=== PATIENT | male | born 1965 | race African-American/Black ===

== ENCOUNTER 2017-10-28 10:07 | Inpatient (IN) | payer BC ==
[~2017-10-28] VITALS: Ht 180.3 cm; Wt 93.0 kg
[~2017-10-28 10:07] MED LIST: LISI10TA5 PO; TENO300T2 PO
[2017-10-28] MEDS ORDERED: GABAPENTIN 300 MG CAPSULE ONE (10:29)
[2017-10-28] MEDS ORDERED: CELECOXIB 200 MG CAPSULE ONE (10:29)
[2017-10-28] MEDS ORDERED: CEFAZOLIN 2 GM IVPB PREMIX 50 ML IV ONE (10:30)
[2017-10-28] MEDS ORDERED: ACETAMINOPHEN 500 MG TABLET PO ONE (10:30)
[2017-10-28] MEDS ORDERED: CELECOXIB 200 MG CAPSULE PO ONE (10:30)
[2017-10-28] MEDS ORDERED: oxyCODONE HCL 10 MG TAB.ER.12H PO ONE ×2 (10:30→10:31)
[2017-10-28] MEDS ORDERED: GABAPENTIN 300 MG CAPSULE PO ONE (10:30)
[2017-10-28] MEDS ORDERED: TRANEXAMIC ACID 650 MG TABLET PO ONE (10:30)
[2017-10-28] MEDS ORDERED: NACL 0.9% 1,000 ML IV ONE (10:30)
[2017-10-28] MEDS ORDERED: ACETAMINOPHEN 500 MG TABLET ONE (10:31)
[2017-10-28] MEDS ORDERED: TRANEXAMIC ACID 650 MG TABLET ONE (10:32)
[2017-10-28] MEDS ORDERED: LISI-217 PO (11:18)
[2017-10-28] MEDS ORDERED: TENO25TA PO (11:18)
[2017-10-28] MEDS ORDERED: POLYMYXIN 500,000/BACIT.10,000 UNITS in NS IRR 1 L IR ONE (11:19)
[2017-10-28] MEDS ORDERED: PROPOFOL 200MG/ 20ML VIAL (DIPRIVAN) IV ONE (12:00)
[2017-10-28] MEDS ORDERED: MIDAZOLAM HCL 5 MG/5 ML VIAL IVP ONE (12:00)
[2017-10-28] MEDS ORDERED: VANCOMYCIN HCL 1000 MG/VIAL IV ONE (12:00)
[2017-10-28] MEDS ORDERED: EPINEPHrine 1 MG/ML AMP IV ONE (12:00)
[2017-10-28] MEDS ORDERED: KETOROLAC TROMETHAMINE 30 MG VIAL IVP ONE (12:00)
[2017-10-28] MEDS ORDERED: TRANEXAMIC ACID 1,000 MG/10 ML VIAL IV ONE (12:00)
[2017-10-28] MEDS ORDERED: MORPHINE SULFATE 10MG/10ML PF AMP EP ONE (12:00)
[2017-10-28] MEDS ORDERED: BUPIVACAINE /PF 0.75% 10 ML VIAL INJ ONE (12:00)
[2017-10-28] MEDS ORDERED: LR 1,000 ML IV.SOLN IV ONE (12:00)
[2017-10-28] MEDS ORDERED: ROPIVACAINE 0.2% 550 ML INJ SCH ×2 (12:57→14:07)
[2017-10-28] MEDS ORDERED: NALBUPHINE HCL 10 MG/ML AMP IVP PRN (13:00)
[2017-10-28] MEDS ORDERED: fentaNYL CITRATE/PF 100 MCG/2 ML AMP IVP PRN ×2 (13:00)
[2017-10-28] MEDS ORDERED: NALOXONE HCL 0.4 MG/ML AMP (NARCAN) IVP PRN ×2 (13:00)
[2017-10-28] MEDS ORDERED: MORPHINE SULFATE 10MG/10ML PF AMP SP SCH (13:00)
[2017-10-28] MEDS ORDERED: KETOROLAC TROMETHAMINE 30 MG VIAL IVP PRN (13:00)
[2017-10-28] MEDS ORDERED: OXYCODONE/ACETAMINOPHEN *10*mg/325 mg TABLET PO PRN (13:00)
[2017-10-28] MEDS ORDERED: ONDANSETRON HCL 4 MG/2 ML VIAL IVP PRN ×2 (13:00→14:15)
[2017-10-28] MEDS ORDERED: DIPHENHYDRAMINE INJ 50 MG/ML VIAL IVP PRN (13:00)
[2017-10-28] MEDS ORDERED: KETOROLAC TROMETHAMINE 60 MG/2 ML VIAL IM PRN (13:00)
[2017-10-28] MEDS ORDERED: KETOROLAC TROMETHAMINE 15 MG VIAL IVP PRN ×2 (14:15)
[2017-10-28] MEDS ORDERED: PROMETHAZINE HCL 25 MG/ML AMP IVP PRN (14:15)
[2017-10-28] MEDS ORDERED: DIPHENHYDRAMINE HCL 25 MG CAPSULE PO PRN (14:15)
[2017-10-28] MEDS ORDERED: SENNOSIDES 8.6 MG TABLET PO PRN (14:15)
[2017-10-28 15:22] VITALS: BP_SYST 124
[2017-10-28] MEDS ORDERED: RIVAROXABAN 10 MG TABLET PO ONE (16:30)
[2017-10-28] MEDS: ACETAMINOPHEN 500 MG TABLET PO SCH ×2 (17:24→21:30)
[2017-10-28] MEDS: D5LR 1,000 ML IV SCH (17:24)
[2017-10-28] MEDS: CEFAZOLIN 1 GM IVPB PREMIX 50 ML IV SCH (17:24)
[2017-10-28 18:40] VITALS: BP_SYST 124
[2017-10-28 20:00] VITALS: BP_SYST 121
[2017-10-28] MEDS: CELECOXIB 200 MG CAPSULE PO SCH (21:30)
[2017-10-28] MEDS: GABAPENTIN 300 MG CAPSULE PO SCH (21:30)
[2017-10-29] MEDS: oxyCODONE HCL 5 MG TABLET PO PRN ×4 (00:20→22:24)
[2017-10-29] MEDS: D5LR 1,000 ML IV SCH ×2 (00:22→20:07)
[2017-10-29] MEDS: CEFAZOLIN 1 GM IVPB PREMIX 50 ML IV SCH ×2 (01:34→09:56)
[2017-10-29 02:05] VITALS: BP_SYST 119
[2017-10-29 06:28] LABS: BASOPHILS % (AUTO) 0.3 % (0.0-2.0); EOSINOPHILS # (AUTO) 0.1 K/uL (0.0-0.4); EOSINOPHILS % (AUTO) 1.9 % (0.0-4.0); HEMATOCRIT 37.2 % (36-54); HEMOGLOBIN 12.9 g/dL (14.0-18.0); LYMPHOCYTES # (AUTO) 1.8 K/uL (1.0-5.5); LYMPHOCYTES % (AUTO) 25.7 % (20.5-51.5); MEAN CORPUSCULAR HEMOGLOBIN 30 pg (27-31); MEAN CORPUSCULAR HGB CONC 35 % (32-36); MEAN CORPUSCULAR VOLUME 87 fL (79.0-98.0); MONOCYTES # (AUTO) 0.7 K/uL (0.0-1.0); MONOCYTES % (AUTO) 10.4 % (1.7-9.3); NEUTROPHILS # (AUTO) 4.3 K/uL (1.8-7.7); NEUTROPHILS % (AUTO) 61.7 % (40.0-70.0); PLATELET COUNT (AUTO) 171 K/uL (130-430); RED CELL DISTRIBUTION WIDTH 13.4 % (9.0-15.0); WHITE BLOOD COUNT (AUTO) 6.9 K/uL (4.8-10.8)
[2017-10-29 06:41] LABS: CALCIUM 8.4 mg/dL (8.4-11.0); CREATININE 1.04 mg/dL (0.55-1.30); POTASSIUM 3.9 mmol/L (3.5-5.1)
[2017-10-29 08:00] VITALS: BP_SYST 127
[2017-10-29] MEDS ORDERED: TENOFOVIR DISOPROXIL FUMARATE 300 MG TABLET(VIREAD) PO SCH (09:00)
[2017-10-29] MEDS: CELECOXIB 200 MG CAPSULE PO SCH ×2 (09:10→20:34)
[2017-10-29] MEDS: LISINOPRIL 10 MG TABLET (PRINIVIL) PO SCH (09:10)
[2017-10-29] MEDS: ACETAMINOPHEN 500 MG TABLET PO SCH ×3 (09:11→20:34)
[2017-10-29] MEDS: MORPHINE 4 MG/ML INJ. SYRINGE IVP PRN ×3 (10:05→23:31)
[2017-10-29] MEDS: RIVAROXABAN 10 MG TABLET PO SCH (10:12)
[2017-10-29] MEDS: TENOFOVIR ALAFENAMIDE FUMARATE 25 MG PO SCH (11:35)
[2017-10-29 12:37] VITALS: BP_SYST 108
[2017-10-29] MEDS ORDERED: ONDANSETRON HCL 4 MG/2 ML VIAL IVP PRN (13:00)
[2017-10-29] MEDS ORDERED: NALBUPHINE HCL 10 MG/ML AMP IVP PRN (13:00)
[2017-10-29] MEDS ORDERED: DIPHENHYDRAMINE INJ 50 MG/ML VIAL IVP PRN (13:00)
[2017-10-29 16:13] VITALS: BP_SYST 110
[2017-10-29] MEDS ORDERED: CALCIUM CARBONATE 500 MG/ TAB.CHEW PO PRN (16:15)
[2017-10-29 19:35] VITALS: BP_SYST 127
[2017-10-29] MEDS: GABAPENTIN 300 MG CAPSULE PO SCH (20:34)
[2017-10-29 23:47] VITALS: BP_SYST 108
[2017-10-30] MEDS ORDERED: MORPHINE SULFATE 10 MG/ML VIAL IM ONE ×2 (00:15→12:45)
[2017-10-30] MEDS: D5LR 1,000 ML IV SCH ×3 (00:35→16:07)
[2017-10-30] MEDS: oxyCODONE HCL 5 MG TABLET PO PRN ×3 (06:33→21:21)
[2017-10-30 06:45] LABS: BASOPHILS % (AUTO) 0.1 % (0.0-2.0); EOSINOPHILS # (AUTO) 0.1 K/uL (0.0-0.4); EOSINOPHILS % (AUTO) 1.5 % (0.0-4.0); LYMPHOCYTES # (AUTO) 1.6 K/uL (1.0-5.5); LYMPHOCYTES % (AUTO) 26.5 % (20.5-51.5); MEAN CORPUSCULAR HEMOGLOBIN 30 pg (27-31); MEAN CORPUSCULAR HGB CONC 34 % (32-36); MEAN CORPUSCULAR VOLUME 87 fL (79.0-98.0); MONOCYTES # (AUTO) 0.7 K/uL (0.0-1.0); MONOCYTES % (AUTO) 11.9 % (1.7-9.3); NEUTROPHILS # (AUTO) 3.5 K/uL (1.8-7.7); PLATELET COUNT (AUTO) 175 K/uL (130-430); RED BLOOD CELL COUNT(AUTO) 4.04 MIL/uL (4.2-6.2); RED CELL DISTRIBUTION WIDTH 13.1 % (9.0-15.0); WHITE BLOOD COUNT (AUTO) 5.9 K/uL (4.8-10.8)
[2017-10-30 07:30] LABS: CALCIUM 8.2 mg/dL (8.4-11.0); CREATININE 1.05 mg/dL (0.55-1.30); POTASSIUM 3.8 mmol/L (3.5-5.1)
[2017-10-30] MEDS: MORPHINE 4 MG/ML INJ. SYRINGE IVP PRN (07:45)
[2017-10-30 08:03] VITALS: BP_SYST 138
[2017-10-30] MEDS ORDERED: MORPHINE 4 MG/ML INJ. SYRINGE IVP PRN ×2 (09:00)
[2017-10-30] MEDS ORDERED: ACETAMINOPHEN 325 MG TABLET PO PRN (09:00)
[2017-10-30] MEDS: ACETAMINOPHEN 500 MG TABLET PO SCH ×3 (09:00→20:03)
[2017-10-30] MEDS: fentaNYL CITRATE/PF 100 MCG/2 ML AMP IVP PRN ×2 (09:14→12:23)
[2017-10-30] MEDS ORDERED: fentaNYL CITRATE/PF 100 MCG/2 ML AMP ONE (09:14)
[2017-10-30] MEDS: CELECOXIB 200 MG CAPSULE PO SCH ×2 (09:16→20:03)
[2017-10-30] MEDS: LISINOPRIL 10 MG TABLET (PRINIVIL) PO SCH (09:17)
[2017-10-30] MEDS: RIVAROXABAN 10 MG TABLET PO SCH (09:17)
[2017-10-30] MEDS: TENOFOVIR ALAFENAMIDE FUMARATE 25 MG PO SCH (09:18)
[2017-10-30 09:39] LABS: BILIRUBIN,DIRECT 0.2 mg/dL (0.0-0.3); TOTAL BILIRUBIN 0.8 mg/dL (0.0-1.0)
[2017-10-30] MEDS ORDERED: IOHEXOL 350 mgI/mL, 150 ML INFUS..BTL IV ONE (10:26)
[2017-10-30 12:30] VITALS: BP_SYST 130
[2017-10-30 18:09] VITALS: BP_SYST 128
[2017-10-30 20:00] VITALS: BP_SYST 153
[2017-10-30] MEDS: GABAPENTIN 300 MG CAPSULE PO SCH (20:02)
[2017-10-31 00:27] VITALS: BP_SYST 119
[2017-10-31] MEDS: D5LR 1,000 ML IV SCH ×2 (02:07→10:59)
[2017-10-31] MEDS: oxyCODONE HCL 5 MG TABLET PO PRN ×2 (03:05→12:49)
[2017-10-31 08:10] VITALS: BP_SYST 146
[2017-10-31] MEDS: CELECOXIB 200 MG CAPSULE PO SCH (08:11)
[2017-10-31] MEDS: ACETAMINOPHEN 500 MG TABLET PO SCH (08:12)
[2017-10-31] MEDS: LISINOPRIL 10 MG TABLET (PRINIVIL) PO SCH (08:12)
[2017-10-31] MEDS: TENOFOVIR ALAFENAMIDE FUMARATE 25 MG PO SCH (08:21)
[2017-10-31 09:29] LABS: BASOPHILS % (AUTO) 0.5 % (0.0-2.0); EOSINOPHILS % (AUTO) 0.6 % (0.0-4.0); HEMOGLOBIN 12.1 g/dL (14.0-18.0); LYMPHOCYTES # (AUTO) 1.5 K/uL (1.0-5.5); LYMPHOCYTES % (AUTO) 21.2 % (20.5-51.5); MEAN CORPUSCULAR HEMOGLOBIN 30 pg (27-31); MEAN CORPUSCULAR HGB CONC 35 % (32-36); MEAN CORPUSCULAR VOLUME 87 fL (79.0-98.0); MONOCYTES # (AUTO) 0.6 K/uL (0.0-1.0); MONOCYTES % (AUTO) 8.2 % (1.7-9.3); NEUTROPHILS # (AUTO) 4.8 K/uL (1.8-7.7); NEUTROPHILS % (AUTO) 69.5 % (40.0-70.0); PLATELET COUNT (AUTO) 179 K/uL (130-430); RED BLOOD CELL COUNT(AUTO) 4.03 MIL/uL (4.2-6.2); RED CELL DISTRIBUTION WIDTH 13.1 % (9.0-15.0); WHITE BLOOD COUNT (AUTO) 6.9 K/uL (4.8-10.8)
[2017-10-31 10:12] LABS: CALCIUM 8.4 mg/dL (8.4-11.0); CREATININE 0.92 mg/dL (0.55-1.30); POTASSIUM 4.2 mmol/L (3.5-5.1)
[2017-10-31] MEDS: RIVAROXABAN 10 MG TABLET PO SCH (10:57)
[2017-10-31 12:25] VITALS: BP_SYST 114
[2017-10-31 14:50] VITALS: BP_SYST 120
== END 2017-10-31 15:25 | disposition home health service (06) | DRG 470 ==
LOC: SMU 10:07 → STU 10:34 → SMU 10-29 08:04 → STU 10-30 10:26
PROVIDERS: ADMIT Orthopaedic Surgery; ATTEND Orthopaedic Surgery
PROC: 0SRD0J9 Replacement of Left Knee Joint with Synthetic Substitute, Cemented, Open Approach (ICD-10-PCS; principal; 2017-10-28 12:00)
DX: M17.12 Unilateral primary osteoarthritis, left knee (principal); B18.1 Chronic viral hepatitis B without delta-agent; I10 Essential (primary) hypertension
CPT/HCPCS: 36415; 71275; 80048; 80076; 85025; 87081; 88305; 88311; 93306; 93970; 97039; 97110-GP; 97116-GP; 97530-GP; C1713; C1776; J0171; J0690; J1885; J2250; J2270; J2274; J2704; J2795; J3010; J3370; J3490; J7120; Q9967

== ENCOUNTER 2021-04-03 19:38 | Emergency (ER) | payer BC, OTHER ==
[~2021-04-03] VITALS: Ht 180.3 cm; Wt 99.3 kg
[~2021-04-03 19:38] MED LIST changes: +LISI-217 PO; +LISI10TA29 PO; -LISI10TA5 PO; +TENO25TA PO
[2021-04-03 19:50] VITALS: BP_SYST 146
[2021-04-03] MEDS ORDERED: IBUP-1969 PO (20:45)
[2021-04-03 21:23] VITALS: BP_SYST 146
== END 2021-04-03 21:24 | disposition home or self-care (01) ==
LOC: SED 19:38
DX: S80.02XA Contusion of left knee, initial encounter (principal); I10 Essential (primary) hypertension; Z79.899 Other long term (current) drug therapy; W51.XXXA Accidental striking against or bumped into by another person, initial encounter; Y93.89 Activity, other specified; Y92.89 Other specified places as the place of occurrence of the external cause; Y99.8 Other external cause status
CPT/HCPCS: 73564; 99283

== ENCOUNTER 2021-10-08 04:04 | Emergency (ER) | payer BC, OTHER ==
[~2021-10-08] VITALS: Ht 180.3 cm; Wt 97.5 kg
[~2021-10-08 04:04] MED LIST changes: +IBUP-1969 PO
[2021-10-08 04:08] VITALS: BP_SYST 135
--- NOTE | 2021-10-08 04:08 | NUR ---
55 YR OLD AOX4, AMBULATORY MALE WITH COMPLAINT OF SUDDEN ONSET ALLERGIC REACTION OF UNKNOWN ORIGIN WITH LIP SWELLING FOR 12 HOURS. PT DENIES SOB, OR ITCHING. PT NOTED TO HAVE SIGNIFICANT SWELLING OF HIS UPPER LIP WITH MILD SWELLING ON OUTTER EDGES. PT REPORTS HEALTH HX OF HTN AND HEP B. IV INSERTED MD DUY AT THE BEDSIDE FOR EVALUATION. WILL MONITOR CLOSELY
[2021-10-08] MEDS ORDERED: DEXAMETHASONE SOD PHOSPHATE 10 MG/ML VIAL IVP ONE (04:30)
[2021-10-08] MEDS ORDERED: FAMOTIDINE PF 20 MG/2 ML VIAL IVP ONE (04:30)
[2021-10-08] MEDS ORDERED: DIPHENHYDRAMINE INJ 50 MG/ML VIAL IVP ONE (04:30)
[2021-10-08] MEDS ORDERED: AMLO5TAB4 PO (05:33)
[2021-10-08] MEDS ORDERED: LORA10TA7 PO (05:33)
[2021-10-08] MEDS ORDERED: FAMO40TA71 PO (05:33)
[2021-10-08] MEDS ORDERED: PRED20TA PO (05:33)
[2021-10-08] MEDS ORDERED: HYDR12.585 PO (05:33)
[2021-10-08 06:40] VITALS: BP_SYST 136
--- NOTE | 2021-10-08 06:43 | NUR ---
Patient given written and verbal discharge instructions and verbalizes understanding. ER MD discussed with patient the results and treatment provided. Patient in stable condition. ID arm band removed. IV catheter removed intact and dressing applied, no active bleeding. Rx of AMLODIPINE given. Patient educated on discontinuing lisinopril and to follow up with PMD. Opportunity for questions provided and answered. Medication side effect fact sheet provided. Pt discharged with all belongings in stable condition.
== END 2021-10-08 06:46 | disposition home or self-care (01) ==
LOC: SED 04:04
DX: T50.995A Adverse effect of other drugs, medicaments and biological substances, initial encounter (principal); I10 Essential (primary) hypertension; Z79.899 Other long term (current) drug therapy; Y92.89 Other specified places as the place of occurrence of the external cause
CPT/HCPCS: 96374; 96375; 99284; J1100; J1200; J3490

== ENCOUNTER 2022-02-28 10:51 | Emergency (ER) | payer BC ==
[~2022-02-28] VITALS: Ht 180.3 cm; Wt 98.4 kg
[2022-02-28 10:51] VITALS: BP_SYST 165
[~2022-02-28 10:51] MED LIST changes: +AMLO5TAB4 PO; +FAMO40TA71 PO; +HYDR12.585 PO; +LORA10TA7 PO; +PRED20TA PO
--- NOTE | 2022-02-28 10:55 | NUR ---
BROUGHT BACK TO BED #5 AND TRIAGED. REPORT GIVEN TO HUGO
--- NOTE | 2022-02-28 11:00 | NUR ---
Patient c/c HTN, states he was unable to fill his medication refill. Patient in no acute distress, BP 164/114, MD aware.
[2022-02-28] MEDS ORDERED: cloNIDine HCL 0.2 MG TABLET PO ONE (11:15)
[2022-02-28 11:33] LABS: EOSINOPHILS # (AUTO) 0.1 K/uL (0.0-0.4); HEMATOCRIT 42.5 % (36-54); LYMPHOCYTES # (AUTO) 1.8 K/uL (1.0-5.5); LYMPHOCYTES % (AUTO) 34.2 % (20.5-51.5); MEAN CORPUSCULAR VOLUME 82 fL (79.0-98.0); MONOCYTES # (AUTO) 0.3 K/uL (0.0-1.0); MONOCYTES % (AUTO) 5.1 % (1.7-9.3); NEUTROPHILS % (AUTO) 58.7 % (40.0-70.0); PLATELET COUNT (AUTO) 211 K/uL (130-430); RED BLOOD CELL COUNT(AUTO) 5.16 MIL/uL (4.2-6.2); RED CELL DISTRIBUTION WIDTH 12.9 % (9.0-15.0); WHITE BLOOD COUNT (AUTO) 5.2 K/uL (4.8-10.8)
[2022-02-28 11:49] LABS: ANION GAP 8 (5-15); CALCIUM 9.8 mg/dL (8.4-11.0); CHLORIDE 100 mmol/L (98-107); CREATININE 1.16 mg/dL (0.55-1.30); GLUCOSE 115 mg/dL (70-99); POTASSIUM 3.7 mmol/L (3.5-5.1); UREA NITROGEN, BLOOD 14 mg/dL (8-21)
--- NOTE | 2022-02-28 11:54 | NUR ---
BP 148/101, patient remains stable, medicated per order.
[2022-02-28 12:00] LABS: ALANINE AMINOTRANSFERASE 48 U/L (12-78); ALBUMIN 3.9 g/dL (3.4-4.8); ASPARTATE AMINOTRANSFERASE 45 U/L (10-37); TOTAL BILIRUBIN 0.6 mg/dL (0.0-1.0)
--- NOTE | 2022-02-28 12:15 | NUR ---
Patient calm and stable, BP 133/79, MD aware.
[2022-02-28 12:21] LABS: GFR AFRICAN AMERICAN 84 mL/min (>90)
[2022-02-28] MEDS ORDERED: CLON0.2T PO (14:29)
[2022-02-28 15:00] VITALS: BP_SYST 133
== END 2022-02-28 15:00 | disposition home or self-care (01) ==
LOC: SED 10:51
DX: I16.0 Hypertensive urgency (principal); I10 Essential (primary) hypertension; R07.9 Chest pain, unspecified; Z79.899 Other long term (current) drug therapy
CPT/HCPCS: 36415; 71045; 80053; 83880; 84484; 85025; 99284